=== PATIENT | male | born 1955 | race Caucasian/White ===

== ENCOUNTER 2018-08-08 06:04 | Day surgery (SDC) | payer MEDICARE, OTHER, SELFPAY ==
[2018-08-05 12:24] VITALS: BMI 30.6
[2018-08-08 06:56] VITALS: BP 153/78; PULSE 55; RESP 16; TEMP 36.2; O2SAT 96; BMI 30.3
[2018-08-08] MEDS: LACTATED RINGERS 1,000 ML 42 ML IV (07:00)
--- NOTE | 2018-08-08 07:33 | PM.PREOP ---
Pre-operative Note Interval Note History & Physical reviewed/Exam performed by Physician: Yes Changes to H&P: No
--- NOTE | 2018-08-08 07:36 | P.OP_ITS ---
Operative Date/Time/Diagnoses Date of procedure: 08/08/18 Time of procedure: 07:34 Pre-op diagnosis: Left great toe arthritis/bone spur Post-op diagnosis: same Procedure & Clinicians Procedure: Left first metatarsophalangeal joint cheilectomy Same procedure as scheduled: Yes Indications: Painful prominence on the top of the great toe joint, difficult to wear shoes. Surgeon: Rubi Ronquillo Click Yes if Unassisted: Yes Anesthesia Type: General Operative Notes Closure Type: primary Specimen(s): none sent Estimated Blood Loss (mL): 10 Blood products transfused: none Tourniquet time (min): 22 Procedure in detail: The patient was brought to the operating room and placed on the operating table in the supine position. Tourniquet was placed about the left ankle. Patient is well- padded and appropriately supported. After induction of general anesthesia the left foot and ankle were prepped and draped in the usual aseptic manner. The tourniquet was inflated. Incision was made over the 1st metatarsal phalangeal joint. The incision was deepened through subcutaneous tissues being careful to identify and retract all vital neurovascular structures. All bleeders were cauterized and ligated as necessary. The capsule was entered dorsally at the joint and this exposed the spurring of the dorsal metatarsal head, proximal phalangeal base, and small ossicles/joint mice on the dorsal joint. Over the largest spur dorsally, there was a 1 cm x 1 cm by 0.6 cm fibroma which was within the capsule of the joint. It was easily resected. Of note, the metatarsal head and phalangeal base showed wearing of cartilage surface. The metatarsal head had formed to being more ovoi d than circular consistent with repeated trauma. The saw and rongeur were used to resect the dorsal joint spurs and remove the ossicles. A rasp was used to reduce the sharp edges of the bone. The area was irrigated with copious amounts normal sterile saline. The toe showed increased motion without crepitus on dorsiflexion and plantarflexion. Deep and subcutaneous closure was closed performed with Vicryl. The tourniquet was deflated and a prompt hyperemic response was seen in the foot. Nylon suture used to close the skin. The foot was dressed with a lightly compressive sterile dressing and splint in alignment. Patient was then placed in a postoperative boot and transferred to PACU with vital signs stable. Complications: none Condition: stable Disposition: PACU Plan for aftercare: Following a period of postoperative monitoring, the patient be discharged home on written and oral postoperative instructions including keeping the dressing dry and intact, avoiding significant ambulation on the foot, icing and elevating the foot when seated home. DVT prevention techniques have been reviewed. For the 1st postoperative visit the dressing will be changed and close to the 3rd postoperative week we will likely remove the sutures.
[2018-08-08] MEDS: CEFAZOLIN 2 GM/100 ML FROZ.PIGGY IV (07:46)
--- NOTE | 2018-08-08 08:09 | SUR.OPER ---
Supine on padded OR bed, head on pillow, arms secured on padded arm boards at <90 degrees abduction, legs uncrossed, safety belt at thigh, tape over blanket over lower right leg. Bump laterally under operative leg.
[2018-08-08 08:56] VITALS: BP 122/85; PULSE 58; RESP 13; TEMP 36.3; O2SAT 96
[2018-08-08 09:00] VITALS: BP 119/78; PULSE 53; RESP 15; O2SAT 97
[2018-08-08 09:05] VITALS: BP 139/87; PULSE 61; RESP 16; TEMP 36.2; O2SAT 98
[2018-08-08 09:14] VITALS: BP 139/86; PULSE 56; RESP 15; TEMP 36.6; O2SAT 95
== END 2018-08-08 09:32 | disposition home or self-care (01) ==
PROVIDERS: Visit Provider Podiatrist
PROC: (CPT 28289; principal; 2018-08-08 07:45)
DX: M77.9 Enthesopathy, unspecified (principal); M12.9 Arthropathy, unspecified; E66.9 Obesity, unspecified; I25.10 Atherosclerotic heart disease of native coronary artery without angina pectoris; Z68.31 Body mass index [BMI] 31.0-31.9, adult
CPT/HCPCS: 28289; J0690; J1100; J2250; J2405; J2704; J3010

== ENCOUNTER → 2019-07-10 14:28 | Outpatient (CLI) | payer MEDICARE, OTHER, SELFPAY ==
--- NOTE | 2019-07-10 | DI.ECHO.S_ITS ---
[facility] +---------+ : : [address] : : : : [place], : : : : [place] [address] : : : : Phone: [phone] + + [facility] Echocardiogram Report + + :Name: DOROTHY HEREDIA Study Date: 07/10/2019 Height: 70 in : :[facility] Weight: 232 lb : : Gender: Male BSA: 2.2 m2 : :: 1955 Age: 64 yrs BP: 122/78 mmHg: :Reason For Study: CAD : :Ordering Physician: Danyel : :Von Aleman Performed By: Sapphire Page : + + Interpretation Summary The left ventricle is normal in size. Trabeculae near apex are visualized. No thrombus is observed. Left ventricular systolic function is normal. The ejection fraction is estimated to be 55-60%. Hypokinesis cannot be ruled out along the distal anterior and inferior septal segments. Diastolic parameters suggest a relaxation abnormality of the left ventricle, consistent with probable normal filling pressures. The right ventricle is normal in size and function. The right ventricular systolic pressure is estimated to be at least 25 mmHg based on an estimated right atrial pressure of 8 mm Hg. The left atrium is severely dilated. The right atrium is mild to moderately dilated. There is mild aortic regurgitation. There is no other significant valvular heart disease. The aortic root is mildly dilated. The ascending aorta is mild-moderately enlarged. Procedure: A two-dimensional transthoracic echocardiogram with color flow and Doppler was performed. The study quality was technically adequate. There is no prior echocardiogram noted for this patient. The patient was in sinus bradycardia with heart rates between 50-60 bpm during the exam. Left Ventricle: The left ventricle is normal in size. Left ventricular wall thickness is normal. Trabeculae near apex are visualized. No thrombus is observed. Left ventricular systolic function is normal. The ejection fraction is estimated to be 55-60%. Hypokinesis cannot be ruled out along the distal anterior and inferior septal segments. Diastolic parameters suggest a relaxation abnormality of the left ventricle, consistent with probable normal filling pressures. Right Ventricle: The right ventricle is normal in size and function. Atria: The left atrium is severely dilated. The right atrium is mild to moderately dilated. Doppler interrogation and injection of saline echo contrast shows no evidence for an interatrial shunt. Mitral Valve: The mitral valve is normal in structure and function. There is trace mitral regurgitation. Aortic Valve: The aortic valve is trileaflet. The aortic valve opens well. There is mild aortic regurgitation. Tricuspid Valve: The tricuspid valve is normal in structure and function. There is a trace or physiologic amount of tricuspid regurgitation. The right ventricular systolic pressure is estimated to be at least 25 mmHg based on an estimated right atrial pressure of 8 mm Hg. Pulmonic Valve: The pulmonic valve leaflets are thin and pliable; valve motion is normal. There is no pulmonic valvular regurgitation. There is no other significant valvular heart disease. Great Vessels: The aortic root is mildly dilated. The ascending aorta is mild-moderately enlarged. The pulmonary artery is normal size. The IVC is dilated (diameter is greater than 2.1 cm) yet it collapses greater than 50% with a sniff. This suggests a right atrial pressure of 8 mm Hg. Pericardium/ Pleura There is no pericardial effusion. There is no pleural effusion. MMode/2D Measurements & Calculations LVIDd: 5.4 cm AoV Openin.4 cm LVIDs: 4.2 cm LVOT diam: 2.3 cm IVSd: 0.96 cm Ao root diam: 4.3 cm LVPWd: 0.94 cm asc Aorta Diam: 4.2 cm LV luis. diameter/BSA (cm/m^2): 2.4 LV sys. diameter/BSA (cm/m^2): 1.9 FS: 21.0 % EPSS: 0.50 cm LA A2 area: 38.2 cm2 RA long axis: 5.6 cm LA A4 area: 34.1 cm2 RA area: 23.3 cm2 LA length (vol): 6.7 cm RA vol: 82.5 ml LA vol: 166.1 ml RA : 37.1 ml/m2 LA vol index: 74.7 ml/m2 RVD1 (basal): 4.5 cm IVC diam: 2.8 cm RVD2 (mid): 4.6 cm Doppler Measurements & Calculations Ao V2 max: 157.9 cm/sec LVOT Max Rsihabh: 77.9 cm/sec Ao V2 mean: 110.2 cm/sec LV V1 max P.4 mmHg Ao V2 VTI: 33.2 cm LV V1 VTI: 18.0 cm Ao max P.0 mmHg Ao mean P.3 mmHg MARY(I,D): 2.2 cm2 AI P1/2t: 587.6 msec MARY(V,D): 2.0 cm2 AI dec slope: 173.5 cm/sec2 MARY indexed to BSA (cm^2/m^2): 1.00 sev ratio: 0.54 MV E max rishabh: 59.3 cm/sec MV dec time: 0.26 sec MV A max rishabh: 68.0 cm/sec MV P1/2t: 79.7 msec MV E/A: 0.87 MVA(P1/2t): 2.8 cm2 Med Peak E' Rishabh: 6.5 cm/sec E/E' med: 9.1 Lat Peak E' Rishabh: 6.7 cm/sec E/E' lat: 8.8 E/e' average: 8.9 TR max rishabh: 203.5 cm/sec PA V2 max: 93.0 cm/sec TR max P.6 mmHg PA V2 mean: 67.3 cm/sec PA mean P.0 mmHg PA Accel Time: 0.14 sec SV(LVOT): 73.5 ml Reading Physician:09:41 PM
[2019-07-10 16:21] LABS: Hematocrit 38.2 % (41-53); Hemoglobin 12.7 g/dL (13.5-17.5); Mean Corpuscular HGB Conc 33.4 % (30-36); Mean Corpuscular Hemoglobin 29.7 PG (26-34); Platelet Count 94 X10^3/uL (150-400); Red Blood Cell Count 4.29 X10^6/uL (4.5-5.9); Red Cell Distribution Width 14.1 % (11.6-14.8); White Blood Cell Count 13.3 X10^3/uL (4.5-11.0)
[2019-07-10 16:22] LABS: Add Manual Diff / Slide Review YES
[2019-07-10 16:29] LABS: Alanine Aminotransferase 23 IU/L (<50); Albumin 4.7 g/dL (3.5-5.0); Albumin Globulin Ratio 1.8 (1.0-2.8); Alkaline Phosphatase 64 U/L (38-126); Aspartate Aminotransferase 22 IU/L (17-59); Bilirubin Total 0.7 mg/dL (0.2-1.3); Blood Urea Nitrogen 16 mg/dL (9-20); Calcium 9.8 mg/dL (8.4-10.2); Carbon Dioxide 27 mmol/L (22-32); Chloride 105 mmol/L (98-107); Cholesterol 120 mg/dL (140-199); Estimated Glomerular Filt Rate > 60.0 mL/min (>60); Globulin 2.6 g/dL (1.7-4.1); Glucose 95 mg/dL (80-110); HDL Cholesterol 53 mg/dL (40-60); HEMOLYSIS < 15 (0-50); LDL Cholesterol Calculated 43 mg/dL (<100); Potassium 4.1 mmol/L (3.4-5.1); Sodium 141 mmol/L (137-145); Total Protein 7.3 g/dL (6.3-8.2); Triglycerides 118 mg/dL (35-150)
[2019-07-10 21:13] LABS: Neutrophils Absolute Manual 3059 /uL (3000-5900); Platelet Estimate Decreased on smear; RBC Morphology Normal Morphology; Total Cells Counted 100
== END ==
PROVIDERS: Referring Provider Internal Medicine Cardiovascular Disease; Visit Provider Internal Medicine Cardiovascular Disease
DX: I35.1 Nonrheumatic aortic (valve) insufficiency (principal); I77.810 Thoracic aortic ectasia; I25.10 Atherosclerotic heart disease of native coronary artery without angina pectoris
CPT/HCPCS: 36415; 80053; 80061; 85025; 93306

== ENCOUNTER → 2019-07-17 11:14 | Outpatient (CLI) | payer MEDICARE, OTHER, SELFPAY ==
[2019-07-17 11:59] LABS: Hematocrit 38.1 % (41-53); Hemoglobin 13.1 g/dL (13.5-17.5); Mean Corpuscular HGB Conc 34.4 % (30-36); Mean Corpuscular Hemoglobin 30.2 PG (26-34); Mean Corpuscular Volume 87.8 fL (80-100); Platelet Count 104 X10^3/uL (150-400); Red Blood Cell Count 4.34 X10^6/uL (4.5-5.9); Red Cell Distribution Width 14.3 % (11.6-14.8); White Blood Cell Count 14.5 X10^3/uL (4.5-11.0)
[2019-07-17 12:13] LABS: Reticulocyte Count, Percent 2.3 % (0.87-2.60)
[2019-07-17 12:17] LABS: Neutrophils Absolute Manual 3770 /uL (3000-5900); RBC Morphology Normal Morphology; Total Cells Counted 100
[2019-07-17 13:34] LABS: HEMOLYSIS < 15 (0-50); Iron 84 ug/dL (49-181)
[2019-07-17 13:43] LABS: Percent Iron Saturation 24 % (20-50); Total Iron Binding Capacity 354 ug/dL (261-462); Transferrin 286 mg/dL (206-381)
[2019-07-17 13:52] LABS: Prostate Specific Antigen Scrn 1.48 ng/mL (0.1-4.0)
[2019-07-17 14:26] LABS: Folate 10.4 ng/mL (2.76-20.0); Vitamin B12 292 pg/mL (239-931)
--- NOTE | 2019-09-21 11:23 | ONC.MSW ---
Description: New Referral Navigation T/C Activity: Called pt to confirm that we've received his referral, introduce myself as the navigator, and briefly described the ongoing availability of assistance, support and resource referrals as needed. No immediate needs identified. Confirmed his initial consult visit time w/Dr. Hernandez for Saturday, 09/24 at 10:00am.
== END ==
PROVIDERS: PCP Internal Medicine; Referring Provider Internal Medicine; Visit Provider Internal Medicine
DX: Z12.5 Encounter for screening for malignant neoplasm of prostate (principal); D64.9 Anemia, unspecified; D69.6 Thrombocytopenia, unspecified; D72.829 Elevated white blood cell count, unspecified
CPT/HCPCS: 36415; 82607; 82746; 83540; 83550; 85025; 85045; 88184; 88185; 88189; G0103

== ENCOUNTER 2019-08-12 15:15 | Outpatient (RCR) | payer MEDICARE, OTHER, SELFPAY ==
--- NOTE | 2019-07-31 14:30 | PT.OPPOC ---
Physical, Occupational & Speech Therapy At [facility] Current Diagnoses Pain in left shoulder (07/31/19) Stiffness of left shoulder, not elsewhere classified (07/31/19) Other injury of muscle(s) and tendon(s) of the rotator cuff of left shoulder, subsequent encounter (07/31/19) Visit Care Team Role Provider Type Julio C Clark MD Attending Provider Physician Primary Care Provider Referring Provider Specialty: Internal Medicine Address: [address] [place] [address], [address], [facility] Email: [email or web address] Plan Of Care PT-OP-T Assessment and Plan Start: 07/31/19 16:22 Freq: Status: Active Protocol: Document 07/31/19 13:45 DCW (Rec: 08/03/19 11:45 DCW [id number]) Physical Therapy Assessment Rehab Potential Rehabilitation Potential Good Evaluation Complexity Number of Personal Factors/Comorbidities 1-2 Number of Body Systems Impaired 1-2 Clinical Presentation at Evaluation Evolving Impairments Impairments Functional Mobility,Posture, ROM,Soft Tissue Mobility, Strength Goals Three Impairment Decreased L shoulder strength [employer] Technical Officer Goal (LTG) Pt to demonstrate a 4/5 left shoulder strength in flexion and abduction in order to lift arm overhead to reach his garage radio. LTG Duration 09/30/19 Two Impairment L shoulder ROM limited (70? abd, 140? flex) [employer] Technical Officer Goal (LTG) L shoulder ROM to increase to 120? abduction to improve ease of putting on deodorant in the morning. LTG Duration 09/30/19 One Impairment Pt does not have an appropriate home exercise program Short Term Goal (STG) Pt to be independent and complaint with an appropriate HEP STG Duration 08/31/19 Assessment Summary Assessment Pt presents with signs and symptoms consistent with a possible supraspinatus tear and subacrominal impingement, with positive special tests including Gasca-Haroldo and Empty Can, as well as significantly limited active Abduction in his left shoulder . Pt additionally displays poor scapulothoracic rhythm, which is also limiting his shoulder mobility. Pt admits that due to minimal or no health insurance over the majority of his adult life, he is trying to get a lot taken care of now that he is on Medicare, which, pending results of other tests, may interfere with a regular course of therapy. If pt is consistent with therapy, and does not make expected progress over the next month, pt may benefit from an MRI to rule in or rule out a rotator cuff tear. Pt should benefit from skilled therapy focusing on increasing strength and ROM , as well as manual therapy to decrease Rhomboid muscle tone and improve joint mobility. Physical Therapy Plan Frequency and Duration Frequency of Treatment 2x/Week Duration of Treatment 12 weeks Plan of Care Start Date 07/31/19 Plan of Care End Date 10/23/19 Therapeutic Interventions Therapeutic Interventions Home Exercise Program,Joint Mobilizations,Manual Therapy, Patient/Caregiver Education, Self-Care/Home Management,Soft Tissue Mobilization, Therapeutic Activities, Therapeutic Exercises Modalities Cold Pack/Ice Massage,Hot Packs Next Visit Focus/Plan Next Note Type Treatment Note Next Visit Plan Shoulder ROM/Strengthening, STM to rhomboids, joint mobs to thoracolumbar and GH joints Plan of Care Dates Plan of Care Start Date 07/31/19 Plan of Care End Date 10/23/19 Electronically Signed by: Sergio Zimmerman, PT 08/03/19 1724 Please Sign and Return: I have reviewed this Plan of Care and certify that the skilled therapy services above are required to meet the patient?s needs. Physician Signature Date Printed Name and Credentials Clinical Instructor Signature Printed Name and Credentials
--- NOTE | 2019-07-31 14:30 | PT.OIE ---
Current Diagnoses Pain in left shoulder (07/31/19) Stiffness of left shoulder, not elsewhere classified (07/31/19) Other injury of muscle(s) and tendon(s) of the rotator cuff of left shoulder, subsequent encounter (07/31/19) Past Medical History (Last Updated 07/17/19 @ 09:09 by Julio C Clark MD) CAD (coronary artery disease) (Chronic) Former smoker (Acute) Hyperlipidemia (Chronic) Sinus bradycardia (Acute) Past Surgical History (Last Updated 07/17/19 @ 09:10 by Julio C Clark MD) Hx of heart artery stent (Acute ~2013) S/P foot surgery, left (Acute ~07/2018) Visit Care Team Role Provider Type Julio C Clark MD Attending Provider Physician Primary Care Provider Referring Provider Specialty: Internal Medicine Address: [address] [place] [address], [address], [facility] Email: [email or web address] Physical Therapy Initial Evaluation PT-OP-A Visit Information Start: 07/31/19 16:22 Freq: Status: Active Protocol: Document 07/31/19 13:45 DCW (Rec: 07/31/19 16:58 [facility] [id number]) Out-Patient Physical Therapy Visit Information Visit Information Visit Type Initial Evaluation Visit Start Time 13:45 Visit Stop Time 14:30 Total Visit Minutes 45 Visit Number 1 Number of EDUCATION DEPARTMENT CHAIR Visits 0 Evaluation Information Evaluation Date 07/31/19 PT-OP-B Current Condition Start: 07/31/19 16:22 Freq: Status: Active Protocol: Document 07/31/19 13:45 DCW (Rec: 07/31/19 16:58 [facility] [id number]) Current Condition History of Current Condition Onset Date one year Current Complaints shoulder pain and limited ROM History of Current Condition Pt is a 64 year old male complaining of a one year history of worsening left shoulder pain and decreasing ROM. Pt notes that about 40 years ago, he badly injured his shoulder skiing, but I didn't do anything about it, because I was young and tough. He thinks this may have started his problems, but it hasn't really bothered him until one year ago. Pt notices his limitations mostly with any overhead motions, lifting, or attempting to put on deodorant. Pt notes a general dull ache fairly consistently, but it can increase when trying to lift his arm into abduction. 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 Notes that he recently had a blood draw, and notes he was recently contacted that he needs to go back to follow-up, because some of my numbers were off. PT-OP-C Subjective Start: 07/31/19 16:22 Freq: Status: Active Protocol: Document 07/31/19 13:45 DCW (Rec: 07/31/19 16:58 DCW [id number]) OP-PT Subjective Patient Comments Patient Comments It's been getting worse over the past year. Patient Reported Progress Worse Patient Questionnaires Quick Dash- Upper Extremity Quick Dash UE Score 15.91 Quick Dash UE Impairment 1 to 19% Impaired (Score 1-19) OP-PT Pain Assessment Pain Assessment Grid Paper Pain Assessment Grid Completed Yes Location Bilateral Shoulder Intensity 4 Scale Used Numeric (1 - 10) Description Aching PT-OP-E Functional Tests Start: 07/31/19 16:22 Freq: Status: Active Protocol: Document 07/31/19 13:45 DCW (Rec: 07/31/19 16:58 DCW [id number]) Functional Tests Apley's Scratch Test Action 1- Left Lateral opposite shoulder Action 1- Right Lateral opposite shoulder Action 2- Left T2 Action 2- Right T5 Action 3- Left T10 Action 3- Right T9 PT-OP-F Manual Assessment Start: 07/31/19 16:22 Freq: Status: Active Protocol: Document 07/31/19 13:45 DCW (Rec: 08/03/19 09:46 DCW [id number]) Manual Assessments Soft Tissue Assessment Soft Tissue Mobility Assessment Moderate-severe tone in L rhomboids Joint Mobility Assessment Joint Mobility Assessment Minimal mobility of scapula, poor scapulothoracic rhythm PT-OP-J Posture/Palpation/Skin Start: 07/31/19 16:22 Freq: Status: Active Protocol: Document 07/31/19 13:45 DCW (Rec: 08/03/19 09:46 DCW [id number]) Posture Evaluation Position Sitting Shoulder Posture (R) Rounded,(R) Forward PT-OP-K Range of Motion Start: 07/31/19 16:22 Freq: Status: Active Protocol: Document 07/31/19 13:45 DCW (Rec: 08/03/19 09:46 DCW [id number]) Shoulder Goniometric Range of Motion Shoulder Right Active Testing Position Sitting Flexion 170 Abduction 150 Left Active Shoulder ROM WFL No Testing Position Sitting Flexion 140 Abduction 70 Shoulder ROM Limitations Shoulder ROM Limitations Soft Tissue Tightness,Muscle Weakness,Muscle Tone,Pain PT-OP-L Special Tests Start: 07/31/19 16:22 Freq: Status: Active Protocol: Document 07/31/19 13:45 DCW (Rec: 08/03/19 09:46 DCW [id number]) Special Tests Shoulder Special Tests Passive ER Rotator Cuff Test Results Positive Left Gasca Haroldo Impingement Test Results Positive Bilaterally Empty Can Test Results Positive Left Belly Press Test Results Positive Left AC Joint Compression Test Results Negative PT-OP-M Strength Start: 07/31/19 16:22 Freq: Status: Active Protocol: Document 07/31/19 13:45 DCW (Rec: 08/03/19 09:46 DCW [id number]) Shoulder Strength Shoulder Manual Muscle Testing Left Flexion 3- Fair- Abduction (C5) 2+ Poor+ External Rotation 5 Normal Internal Rotation 5 Normal Comments Pt flexion and abduction strong in available ROM, however unable to move throughout full ROM PT-OP-Q Treatments Start: 07/31/19 16:22 Freq: Status: Active Protocol: Document 07/31/19 13:45 DCW (Rec: 08/03/19 11:45 DCW [id number]) Manual Therapy Treatment Joint Mobilizations 2 Joint L Glenohumeral Direction Inferior Grade III Body Position Hooklying 1 Joint L scapulothoracic Direction Lateral Grade III Body Position Hooklying PT-OP-T Assessment and Plan Start: 07/31/19 16:22 Freq: Status: Active Protocol: Document 07/31/19 13:45 DCW (Rec: 08/03/19 11:45 DCW [id number]) Physical Therapy Assessment Rehab Potential Rehabilitation Potential Good Evaluation Complexity Number of Personal Factors/Comorbidities 1-2 Number of Body Systems Impaired 1-2 Clinical Presentation at Evaluation Evolving Impairments Impairments Functional Mobility,Posture, ROM,Soft Tissue Mobility, Strength Goals Three Impairment Decreased L shoulder strength [employer] Other Ranks Goal (LTG) Pt to demonstrate a 4/5 left shoulder strength in flexion and abduction in order to lift arm overhead to reach his garage radio. LTG Duration 09/30/19 Two Impairment L shoulder ROM limited (70? abd, 140? flex) [facility] Goal (LTG) L shoulder ROM to increase to 120? abduction to improve ease of putting on deodorant in the morning. LTG Duration 09/30/19 One Impairment Pt does not have an appropriate home exercise program Short Term Goal (STG) Pt to be independent and complaint with an appropriate HEP STG Duration 08/31/19 Assessment Summary Assessment Pt presents with signs and symptoms consistent with a possible supraspinatus tear and subacrominal impingement, with positive special tests including Gasca-Haroldo and Empty Can, as well as significantly limited active Abduction in his left shoulder . Pt additionally displays poor scapulothoracic rhythm, which is also limiting his shoulder mobility. Pt admits that due to minimal or no health insurance over the majority of his adult life, he is trying to get a lot taken care of now that he is on Medicare, which, pending results of other tests, may interfere with a regular course of therapy. If pt is consistent with therapy, and does not make expected progress over the next month, pt may benefit from an MRI to rule in or rule out a rotator cuff tear. Pt should benefit from skilled therapy focusing on increasing strength and ROM , as well as manual therapy to decrease Rhomboid muscle tone and improve joint mobility. Physical Therapy Plan Frequency and Duration Frequency of Treatment 2x/Week Duration of Treatment 12 weeks Plan of Care Start Date 07/31/19 Plan of Care End Date 10/23/19 Therapeutic Interventions Therapeutic Interventions Home Exercise Program,Joint Mobilizations,Manual Therapy, Patient/Caregiver Education, Self-Care/Home Management,Soft Tissue Mobilization, Therapeutic Activities, Therapeutic Exercises Modalities Cold Pack/Ice Massage,Hot Packs Next Visit Focus/Plan Next Note Type Treatment Note Next Visit Plan Shoulder ROM/Strengthening, STM to rhomboids, joint mobs to thoracolumbar and GH joints
--- NOTE | 2019-08-03 16:46 | PT.OTN ---
Current Diagnoses Pain in left shoulder (08/03/19) Stiffness of left shoulder, not elsewhere classified (08/03/19) Other injury of muscle(s) and tendon(s) of the rotator cuff of left shoulder, subsequent encounter (08/03/19) Physical Therapy Treatment Note PT-OP-A Visit Information Start: 07/31/19 16:22 Freq: Status: Active Protocol: Document 08/03/19 16:00 DCW (Rec: 08/03/19 16:46 DCW [id number]) Out-Patient Physical Therapy Visit Information Visit Information Visit Type Treatment Note Visit Start Time 16:00 Visit Stop Time 16:45 Total Visit Minutes 45 Visit Number 2 Number of EDGE BRUSHER Visits 0 Evaluation Information Evaluation Date 07/31/19 PT-OP-B Current Condition Start: 07/31/19 16:22 Freq: Status: Active Protocol: Document 07/31/19 13:45 DCW (Rec: 07/31/19 16:58 DCW [id number]) Current Condition History of Current Condition Onset Date one year Current Complaints shoulder pain and limited ROM History of Current Condition Pt is a 64 year old male complaining of a one year history of worsening left shoulder pain and decreasing ROM. Pt notes that about 40 years ago, he badly injured his shoulder skiing, but I didn't do anything about it, because I was young and tough. He thinks this may have started his problems, but it hasn't really bothered him until one year ago. Pt notices his limitations mostly with any overhead motions, lifting, or attempting to put on deodorant. Pt notes a general dull ache fairly consistently, but it can increase when trying to lift his arm into abduction. 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 Notes that he recently had a blood draw, and notes he was recently contacted that he needs to go back to follow-up, because some of my numbers were off. PT-OP-C Subjective Start: 07/31/19 16:22 Freq: Status: Active Protocol: Document 08/03/19 16:00 DCW (Rec: 08/03/19 16:46 DCW [id number]) OP-PT Subjective Patient Comments Patient Comments It's amazing, if you don't use something for long enough, you start to lose it. I think I'm in that zone. PT-OP-E Functional Tests Start: 07/31/19 16:22 Freq: Status: Active Protocol: Document 07/31/19 13:45 DCW (Rec: 07/31/19 16:58 DCW [id number]) Functional Tests Apley's Scratch Test Action 1- Left Lateral opposite shoulder Action 1- Right Lateral opposite shoulder Action 2- Left T2 Action 2- Right T5 Action 3- Left T10 Action 3- Right T9 PT-OP-F Manual Assessment Start: 07/31/19 16:22 Freq: Status: Active Protocol: Document 07/31/19 13:45 DCW (Rec: 08/03/19 09:46 DCW [id number]) Manual Assessments Soft Tissue Assessment Soft Tissue Mobility Assessment Moderate-severe tone in L rhomboids Joint Mobility Assessment Joint Mobility Assessment Minimal mobility of scapula, poor scapulothoracic rhythm PT-OP-J Posture/Palpation/Skin Start: 07/31/19 16:22 Freq: Status: Active Protocol: Document 07/31/19 13:45 DCW (Rec: 08/03/19 09:46 DCW [id number]) Posture Evaluation Position Sitting Shoulder Posture (R) Rounded,(R) Forward PT-OP-K Range of Motion Start: 07/31/19 16:22 Freq: Status: Active Protocol: Document 07/31/19 13:45 DCW (Rec: 08/03/19 09:46 DCW [id number]) Shoulder Goniometric Range of Motion Shoulder Right Active Testing Position Sitting Flexion 170 Abduction 150 Left Active Shoulder ROM WFL No Testing Position Sitting Flexion 140 Abduction 70 Shoulder ROM Limitations Shoulder ROM Limitations Soft Tissue Tightness,Muscle Weakness,Muscle Tone,Pain PT-OP-L Special Tests Start: 07/31/19 16:22 Freq: Status: Active Protocol: Document 07/31/19 13:45 DCW (Rec: 08/03/19 09:46 DCW [id number]) Special Tests Shoulder Special Tests Passive ER Rotator Cuff Test Results Positive Left Gasca Haroldo Impingement Test Results Positive Bilaterally Empty Can Test Results Positive Left Belly Press Test Results Positive Left AC Joint Compression Test Results Negative PT-OP-M Strength Start: 07/31/19 16:22 Freq: Status: Active Protocol: Document 07/31/19 13:45 DCW (Rec: 08/03/19 09:46 DCW [id number]) Shoulder Strength Shoulder Manual Muscle Testing Left Flexion 3- Fair- Abduction (C5) 2+ Poor+ External Rotation 5 Normal Internal Rotation 5 Normal Comments Pt flexion and abduction strong in available ROM, however unable to move throughout full ROM PT-OP-Q Treatments Start: 07/31/19 16:22 Freq: Status: Active Protocol: Document 08/03/19 16:00 DCW (Rec: 08/03/19 16:46 DCW [id number]) Therapeutic Exercises Sitting Exercises 1 Sitting Exercise Name Pulleys: Flexion/Abduction Standing Exercises 3 Standing Exercise Name Rows Side bilateral Resistance Lv 2 Equipment Used T-band 2 Standing Exercise Name Shoulder Adduction Side bilateral Resistance Lv 2 Equipment Used T-band 1 Standing Exercise Name Shoulder Extension Side bilateral Resistance Lv 2 Equipment Used T-band Manual Therapy Treatment Soft Tissue Mobilization 1 Body Location B Rhomboids Mobilization Type Strumming,Sustained Pressure Joint Mobilizations 2 Joint L Glenohumeral Direction Inferior Grade III Body Position Hooklying 1 Joint L scapulothoracic Direction Lateral Grade III Body Position Hooklying PT-OP-T Assessment and Plan Start: 07/31/19 16:22 Freq: Status: Active Protocol: Document 08/03/19 16:00 DCW (Rec: 08/03/19 16:46 DCW [id number]) Physical Therapy Assessment Impairments Impairments Functional Mobility,Posture, ROM,Soft Tissue Mobility, Strength Goals Three Impairment Decreased L shoulder strength Custodial Goal (LTG) Pt to demonstrate a 4/5 left shoulder strength in flexion and abduction in order to lift arm overhead to reach his garage radio. LTG Duration 09/30/19 Two Impairment L shoulder ROM limited (70? abd, 140? flex) Custodial Goal (LTG) L shoulder ROM to increase to 120? abduction to improve ease of putting on deodorant in the morning. LTG Duration 09/30/19 One Impairment Pt does not have an appropriate home exercise program Short Term Goal (STG) Pt to be independent and complaint with an appropriate HEP STG Duration 08/31/19 Assessment Summary Assessment Pt left shoulder much looser today, therapist able to get fingers along medial boarder with minimal difficulty, despite last week needing STM and joint maneuvering to get scapula loose enough. Pt reports feeling much better both after his initial evaluation and after treatment today. Physical Therapy Plan Frequency and Duration Frequency of Treatment 2x/Week Duration of Treatment 12 weeks Plan of Care Start Date 07/31/19 Plan of Care End Date 10/23/19 Therapeutic Interventions Therapeutic Interventions Home Exercise Program,Joint Mobilizations,Manual Therapy, Patient/Caregiver Education, Self-Care/Home Management,Soft Tissue Mobilization, Therapeutic Activities, Therapeutic Exercises Modalities Cold Pack/Ice Massage,Hot Packs Next Visit Focus/Plan Next Note Type Treatment Note Next Visit Plan Shoulder ROM/Strengthening, STM to rhomboids, joint mobs to thoracolumbar and GH joints
--- NOTE | 2019-08-06 16:55 | PT.OTN ---
Current Diagnoses Pain in left shoulder (08/06/19) Stiffness of left shoulder, not elsewhere classified (08/06/19) Other injury of muscle(s) and tendon(s) of the rotator cuff of left shoulder, subsequent encounter (08/06/19) Physical Therapy Treatment Note PT-OP-A Visit Information Start: 07/31/19 16:22 Freq: Status: Active Protocol: Document 08/06/19 16:00 DCW (Rec: 08/06/19 16:55 DCW [id number]) Out-Patient Physical Therapy Visit Information Visit Information Visit Type Treatment Note Visit Start Time 16:00 Visit Stop Time 16:45 Total Visit Minutes 45 Visit Number 3 Number of NUCLEAR PLANT EQUIPMENT OPERATOR Visits 0 Evaluation Information Evaluation Date 07/31/19 PT-OP-B Current Condition Start: 07/31/19 16:22 Freq: Status: Active Protocol: Document 07/31/19 13:45 DCW (Rec: 07/31/19 16:58 DCW [id number]) Current Condition History of Current Condition Onset Date one year Current Complaints shoulder pain and limited ROM History of Current Condition Pt is a 64 year old male complaining of a one year history of worsening left shoulder pain and decreasing ROM. Pt notes that about 40 years ago, he badly injured his shoulder skiing, but I didn't do anything about it, because I was young and tough. He thinks this may have started his problems, but it hasn't really bothered him until one year ago. Pt notices his limitations mostly with any overhead motions, lifting, or attempting to put on deodorant. Pt notes a general dull ache fairly consistently, but it can increase when trying to lift his arm into abduction. 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 Notes that he recently had a blood draw, and notes he was recently contacted that he needs to go back to follow-up, because some of my numbers were off. PT-OP-C Subjective Start: 07/31/19 16:22 Freq: Status: Active Protocol: Document 08/06/19 16:00 DCW (Rec: 08/06/19 16:55 DCW [id number]) OP-PT Subjective Patient Comments Patient Comments It's not fixed yet. PT-OP-E Functional Tests Start: 07/31/19 16:22 Freq: Status: Active Protocol: Document 07/31/19 13:45 DCW (Rec: 07/31/19 16:58 DCW [id number]) Functional Tests Apley's Scratch Test Action 1- Left Lateral opposite shoulder Action 1- Right Lateral opposite shoulder Action 2- Left T2 Action 2- Right T5 Action 3- Left T10 Action 3- Right T9 PT-OP-F Manual Assessment Start: 07/31/19 16:22 Freq: Status: Active Protocol: Document 07/31/19 13:45 DCW (Rec: 08/03/19 09:46 DCW [id number]) Manual Assessments Soft Tissue Assessment Soft Tissue Mobility Assessment Moderate-severe tone in L rhomboids Joint Mobility Assessment Joint Mobility Assessment Minimal mobility of scapula, poor scapulothoracic rhythm PT-OP-J Posture/Palpation/Skin Start: 07/31/19 16:22 Freq: Status: Active Protocol: Document 07/31/19 13:45 DCW (Rec: 08/03/19 09:46 DCW [id number]) Posture Evaluation Position Sitting Shoulder Posture (R) Rounded,(R) Forward PT-OP-K Range of Motion Start: 07/31/19 16:22 Freq: Status: Active Protocol: Document 07/31/19 13:45 DCW (Rec: 08/03/19 09:46 DCW [id number]) Shoulder Goniometric Range of Motion Shoulder Right Active Testing Position Sitting Flexion 170 Abduction 150 Left Active Shoulder ROM WFL No Testing Position Sitting Flexion 140 Abduction 70 Shoulder ROM Limitations Shoulder ROM Limitations Soft Tissue Tightness,Muscle Weakness,Muscle Tone,Pain PT-OP-L Special Tests Start: 07/31/19 16:22 Freq: Status: Active Protocol: Document 07/31/19 13:45 DCW (Rec: 08/03/19 09:46 DCW [id number]) Special Tests Shoulder Special Tests Passive ER Rotator Cuff Test Results Positive Left Gasca Haroldo Impingement Test Results Positive Bilaterally Empty Can Test Results Positive Left Belly Press Test Results Positive Left AC Joint Compression Test Results Negative PT-OP-M Strength Start: 07/31/19 16:22 Freq: Status: Active Protocol: Document 07/31/19 13:45 DCW (Rec: 08/03/19 09:46 DCW [id number]) Shoulder Strength Shoulder Manual Muscle Testing Left Flexion 3- Fair- Abduction (C5) 2+ Poor+ External Rotation 5 Normal Internal Rotation 5 Normal Comments Pt flexion and abduction strong in available ROM, however unable to move throughout full ROM PT-OP-Q Treatments Start: 07/31/19 16:22 Freq: Status: Active Protocol: Document 08/06/19 16:00 DCW (Rec: 08/06/19 16:55 DCW [id number]) Cardio Equipment Upper Body Ergometer (UBE) Duration (Minutes) 5 RPM 60 Seat Position 13 Height 2.5 Therapeutic Exercises Supine Exercises 2 Supine Exercise Name Horizontal Adduction Side bilateral Resistance 3# 1 Supine Exercise Name Serratus Punch Side bilateral Resistance 3# Sitting Exercises 1 Sitting Exercise Name Pulleys: Flexion/Abduction Standing Exercises 3 Standing Exercise Name Rows Side bilateral Resistance Lv 4 Equipment Used T-band 2 Standing Exercise Name Shoulder Adduction Side bilateral Resistance Lv 2 Equipment Used T-band 1 Standing Exercise Name Shoulder Extension Side bilateral Resistance Lv 2 Equipment Used T-band PT-OP-T Assessment and Plan Start: 07/31/19 16:22 Freq: Status: Active Protocol: Document 08/06/19 16:00 DCW (Rec: 08/06/19 16:55 DCW [id number]) Physical Therapy Assessment Assessment Summary Assessment Pt continues to make progress, showing increased tolerance to movement, and was less sore /fatigued with resistance exercises today. Physical Therapy Plan Frequency and Duration Frequency of Treatment 2x/Week Duration of Treatment 12 weeks Plan of Care Start Date 07/31/19 Plan of Care End Date 10/23/19 Therapeutic Interventions Therapeutic Interventions Home Exercise Program,Joint Mobilizations,Manual Therapy, Patient/Caregiver Education, Self-Care/Home Management,Soft Tissue Mobilization, Therapeutic Activities, Therapeutic Exercises Modalities Cold Pack/Ice Massage,Hot Packs Next Visit Focus/Plan Next Note Type Treatment Note Next Visit Plan Shoulder ROM/Strengthening, STM to rhomboids, joint mobs to thoracolumbar and GH joints
--- NOTE | 2019-08-12 16:03 | PT.OTN ---
Current Diagnoses Pain in left shoulder (08/12/19) Stiffness of left shoulder, not elsewhere classified (08/12/19) Other injury of muscle(s) and tendon(s) of the rotator cuff of left shoulder, subsequent encounter (08/12/19) Physical Therapy Treatment Note PT-OP-A Visit Information Start: 07/31/19 16:22 Freq: Status: Active Protocol: Document 08/12/19 15:15 DCW (Rec: 08/12/19 16:03 DCW [id number]) Out-Patient Physical Therapy Visit Information Visit Information Visit Type Treatment Note Visit Start Time 15:15 Visit Stop Time 16:00 Total Visit Minutes 45 Visit Number 4 Number of WIRELESS SALES ASSOCIATE Visits 0 Evaluation Information Evaluation Date 07/31/19 PT-OP-B Current Condition Start: 07/31/19 16:22 Freq: Status: Active Protocol: Document 07/31/19 13:45 DCW (Rec: 07/31/19 16:58 DCW [id number]) Current Condition History of Current Condition Onset Date one year Current Complaints shoulder pain and limited ROM History of Current Condition Pt is a 64 year old male complaining of a one year history of worsening left shoulder pain and decreasing ROM. Pt notes that about 40 years ago, he badly injured his shoulder skiing, but I didn't do anything about it, because I was young and tough. He thinks this may have started his problems, but it hasn't really bothered him until one year ago. Pt notices his limitations mostly with any overhead motions, lifting, or attempting to put on deodorant. Pt notes a general dull ache fairly consistently, but it can increase when trying to lift his arm into abduction. 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 Notes that he recently had a blood draw, and notes he was recently contacted that he needs to go back to follow-up, because some of my numbers were off. PT-OP-C Subjective Start: 07/31/19 16:22 Freq: Status: Active Protocol: Document 08/12/19 15:15 DCW (Rec: 08/12/19 16:03 DCW [id number]) OP-PT Subjective Patient Comments Patient Comments It's getting better. I can still feel it, but it's getting better. PT-OP-E Functional Tests Start: 07/31/19 16:22 Freq: Status: Active Protocol: Document 07/31/19 13:45 DCW (Rec: 07/31/19 16:58 DCW [id number]) Functional Tests Apley's Scratch Test Action 1- Left Lateral opposite shoulder Action 1- Right Lateral opposite shoulder Action 2- Left T2 Action 2- Right T5 Action 3- Left T10 Action 3- Right T9 PT-OP-F Manual Assessment Start: 07/31/19 16:22 Freq: Status: Active Protocol: Document 07/31/19 13:45 DCW (Rec: 08/03/19 09:46 DCW [id number]) Manual Assessments Soft Tissue Assessment Soft Tissue Mobility Assessment Moderate-severe tone in L rhomboids Joint Mobility Assessment Joint Mobility Assessment Minimal mobility of scapula, poor scapulothoracic rhythm PT-OP-J Posture/Palpation/Skin Start: 07/31/19 16:22 Freq: Status: Active Protocol: Document 07/31/19 13:45 DCW (Rec: 08/03/19 09:46 DCW [id number]) Posture Evaluation Position Sitting Shoulder Posture (R) Rounded,(R) Forward PT-OP-K Range of Motion Start: 07/31/19 16:22 Freq: Status: Active Protocol: Document 07/31/19 13:45 DCW (Rec: 08/03/19 09:46 DCW [id number]) Shoulder Goniometric Range of Motion Shoulder Right Active Testing Position Sitting Flexion 170 Abduction 150 Left Active Shoulder ROM WFL No Testing Position Sitting Flexion 140 Abduction 70 Shoulder ROM Limitations Shoulder ROM Limitations Soft Tissue Tightness,Muscle Weakness,Muscle Tone,Pain PT-OP-L Special Tests Start: 07/31/19 16:22 Freq: Status: Active Protocol: Document 07/31/19 13:45 DCW (Rec: 08/03/19 09:46 DCW [id number]) Special Tests Shoulder Special Tests Passive ER Rotator Cuff Test Results Positive Left Gasca Haroldo Impingement Test Results Positive Bilaterally Empty Can Test Results Positive Left Belly Press Test Results Positive Left AC Joint Compression Test Results Negative PT-OP-M Strength Start: 07/31/19 16:22 Freq: Status: Active Protocol: Document 07/31/19 13:45 DCW (Rec: 08/03/19 09:46 DCW [id number]) Shoulder Strength Shoulder Manual Muscle Testing Left Flexion 3- Fair- Abduction (C5) 2+ Poor+ External Rotation 5 Normal Internal Rotation 5 Normal Comments Pt flexion and abduction strong in available ROM, however unable to move throughout full ROM PT-OP-Q Treatments Start: 07/31/19 16:22 Freq: Status: Active Protocol: Document 08/12/19 15:15 DCW (Rec: 08/12/19 16:03 DCW [id number]) Cardio Equipment Upper Body Ergometer (UBE) Duration (Minutes) 5 RPM 60 Seat Position 13 Height 2.5 Therapeutic Exercises Supine Exercises 2 Supine Exercise Name Horizontal Adduction Side bilateral Resistance 3# 1 Supine Exercise Name Serratus Punch Side bilateral Resistance 3# Sidelying Exercises 1 Sidelying Exercise Name Sidelying ER Side left Comments Stopped d/t pain Sitting Exercises 1 Sitting Exercise Name Pulleys: Flexion/Abduction Standing Exercises 5 Standing Exercise Name Shoulder Abduction Side bilateral Resistance 3# 4 Standing Exercise Name Shoulder Flexion Side bilateral Resistance 3# Manual Therapy Treatment Soft Tissue Mobilization 1 Body Location B Rhomboids Mobilization Type Strumming,Sustained Pressure Joint Mobilizations 2 Joint L Glenohumeral Direction Inferior Grade III Body Position Hooklying 1 Joint L scapulothoracic Direction Lateral Grade III Body Position Hooklying PT-OP-T Assessment and Plan Start: 07/31/19 16:22 Freq: Status: Active Protocol: Document 08/12/19 15:15 DCW (Rec: 08/12/19 16:03 DCW [id number]) Physical Therapy Assessment Impairments Impairments Functional Mobility,Posture, ROM,Soft Tissue Mobility, Strength Goals Three Impairment Decreased L shoulder strength Family Independence Case Manager Goal (LTG) Pt to demonstrate a 4/5 left shoulder strength in flexion and abduction in order to lift arm overhead to reach his garage radio. LTG Duration 09/30/19 Two Impairment L shoulder ROM limited (70? abd, 140? flex) Half-Way Goal (LTG) L shoulder ROM to increase to 120? abduction to improve ease of putting on deodorant in the morning. LTG Duration 09/30/19 One Impairment Pt does not have an appropriate home exercise program Short Term Goal (STG) Pt to be independent and complaint with an appropriate HEP STG Duration 08/31/19 Assessment Summary Assessment Pt left shoulder much looser today, therapist able to get fingers along medial boarder with minimal difficulty, despite last week needing STM and joint maneuvering to get scapula loose enough. Pt reports feeling much better both after his initial evaluation and after treatment today. Physical Therapy Plan Frequency and Duration Frequency of Treatment 2x/Week Duration of Treatment 12 weeks Plan of Care Start Date 07/31/19 Plan of Care End Date 10/23/19 Therapeutic Interventions Therapeutic Interventions Home Exercise Program,Joint Mobilizations,Manual Therapy, Patient/Caregiver Education, Self-Care/Home Management,Soft Tissue Mobilization, Therapeutic Activities, Therapeutic Exercises Modalities Cold Pack/Ice Massage,Hot Packs Next Visit Focus/Plan Next Note Type Treatment Note Next Visit Plan Shoulder ROM/Strengthening, STM to rhomboids, joint mobs to thoracolumbar and GH joints
--- NOTE | 2020-01-06 17:13 | PT.OPDS ---
Current Diagnoses Pain in left shoulder (08/12/19) Stiffness of left shoulder, not elsewhere classified (08/12/19) Other injury of muscle(s) and tendon(s) of the rotator cuff of left shoulder, subsequent encounter (08/12/19) Visit Care Team Role Provider Type Julio C Clark MD Attending Provider Physician Primary Care Provider Referring Provider Specialty: Internal Medicine Address: [address] [place] [address], [address], [facility] Email: [email or web address] Visit Number Visit Number 4 Discharge Summary PT-OP-B Current Condition Start: 07/31/19 16:22 Freq: Status: Active Protocol: Document 07/31/19 13:45 DCW (Rec: 07/31/19 16:58 DCW [id number]) Current Condition History of Current Condition Onset Date one year Current Complaints shoulder pain and limited ROM History of Current Condition Pt is a 64 year old male complaining of a one year history of worsening left shoulder pain and decreasing ROM. Pt notes that about 40 years ago, he badly injured his shoulder skiing, but I didn't do anything about it, because I was young and tough. He thinks this may have started his problems, but it hasn't really bothered him until one year ago. Pt notices his limitations mostly with any overhead motions, lifting, or attempting to put on deodorant. Pt notes a general dull ache fairly consistently, but it can increase when trying to lift his arm into abduction. 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 Notes that he recently had a blood draw, and notes he was recently contacted that he needs to go back to follow-up, because some of my numbers were off. PT-OP-C Subjective Start: 07/31/19 16:22 Freq: Status: Active Protocol: Document 08/12/19 15:15 DCW (Rec: 08/12/19 16:03 DCW [id number]) OP-PT Subjective Patient Comments Patient Comments It's getting better. I can still feel it, but it's getting better. PT-OP-E Functional Tests Start: 07/31/19 16:22 Freq: Status: Active Protocol: Document 07/31/19 13:45 DCW (Rec: 07/31/19 16:58 DCW [id number]) Functional Tests Apley's Scratch Test Action 1- Left Lateral opposite shoulder Action 1- Right Lateral opposite shoulder Action 2- Left T2 Action 2- Right T5 Action 3- Left T10 Action 3- Right T9 PT-OP-F Manual Assessment Start: 07/31/19 16:22 Freq: Status: Active Protocol: Document 07/31/19 13:45 DCW (Rec: 08/03/19 09:46 DCW [id number]) Manual Assessments Soft Tissue Assessment Soft Tissue Mobility Assessment Moderate-severe tone in L rhomboids Joint Mobility Assessment Joint Mobility Assessment Minimal mobility of scapula, poor scapulothoracic rhythm PT-OP-J Posture/Palpation/Skin Start: 07/31/19 16:22 Freq: Status: Active Protocol: Document 07/31/19 13:45 DCW (Rec: 08/03/19 09:46 DCW [id number]) Posture Evaluation Position Sitting Shoulder Posture (R) Rounded,(R) Forward PT-OP-K Range of Motion Start: 07/31/19 16:22 Freq: Status: Active Protocol: Document 07/31/19 13:45 DCW (Rec: 08/03/19 09:46 DCW [id number]) Shoulder Goniometric Range of Motion Shoulder Right Active Testing Position Sitting Flexion 170 Abduction 150 Left Active Shoulder ROM WFL No Testing Position Sitting Flexion 140 Abduction 70 Shoulder ROM Limitations Shoulder ROM Limitations Soft Tissue Tightness,Muscle Weakness,Muscle Tone,Pain PT-OP-L Special Tests Start: 07/31/19 16:22 Freq: Status: Active Protocol: Document 07/31/19 13:45 DCW (Rec: 08/03/19 09:46 DCW [id number]) Special Tests Shoulder Special Tests Passive ER Rotator Cuff Test Results Positive Left Gasca Haroldo Impingement Test Results Positive Bilaterally Empty Can Test Results Positive Left Belly Press Test Results Positive Left AC Joint Compression Test Results Negative PT-OP-M Strength Start: 07/31/19 16:22 Freq: Status: Active Protocol: Document 07/31/19 13:45 DCW (Rec: 08/03/19 09:46 DCW [id number]) Shoulder Strength Shoulder Manual Muscle Testing Left Flexion 3- Fair- Abduction (C5) 2+ Poor+ External Rotation 5 Normal Internal Rotation 5 Normal Comments Pt flexion and abduction strong in available ROM, however unable to move throughout full ROM PT-OP-T Assessment and Plan Start: 07/31/19 16:22 Freq: Status: Active Protocol: Document 01/06/20 17:13 DCW (Rec: 01/06/20 17:13 DCW [id number]) Physical Therapy Assessment Assessment Summary Assessment Pt did not return phone calls from scheduling department following reopening of clinic after Covid-19 closure. Pt will be discharged from skilled therapy at this time.
== END 2020-01-07 08:05 ==
LOC: PHYS 15:15
PROVIDERS: PCP Internal Medicine; Referring Provider Internal Medicine; Visit Provider Internal Medicine
DX: M25.512 Pain in left shoulder (principal); M25.612 Stiffness of left shoulder, not elsewhere classified; S46.092D Other injury of muscle(s) and tendon(s) of the rotator cuff of left shoulder, subsequent encounter
CPT/HCPCS: 97110; 97140; 97161

== ENCOUNTER → 2019-09-28 11:22 | Outpatient (CLI) | payer MEDICARE, OTHER, SELFPAY ==
--- NOTE | 2019-09-28 11:25 | DI.CT.S_ITS ---
PROCEDURE: CT CHEST ABD PEL W CON INDICATIONS: cll TECHNIQUE: After the administration of oral and intravenous contrast, 5 mm thick sections acquired from the lung apices to the symphysis. 5 mm coronal and sagittal reformats were performed, with additional 7 mm coronal MIP reformats through the lungs. For radiation dose reduction, the following was used: automated exposure control, adjustment of mA and/or kV according to patient size. COMPARISON: None. FINDINGS: Image quality: Excellent. CHEST: Lungs and pleura: No acute airspace opacities. There is mild paraseptal emphysema bilaterally at the apices. Mild atelectasis is present in the dependent lungs bilaterally. No pleural effusions or pneumothorax. Central and peripheral airways appear patent and normal in caliber. Mediastinum: Heart size is normal. No pericardial effusion. No mediastinal or hilar adenopathy by size criteria. Thoracic aorta and central pulmonary arteries are normal in size. Scattered atheromatous calcifications are present within the aortic arch. Esophagus is normal in caliber. No hiatal hernia. Chest wall: There are multiple shotty bilateral axillary lymph nodes, none of which meet the pathologic size criteria. Thyroid gland is unremarkable. ABDOMEN: Solid organs: Liver is normal in size and enhancement. Gallbladder is unremarkable. Biliary system is non dilated. Pancreas enhances normally. The spleen measures 19.8 cm in length. Multiple subcentimeter hypervascular foci are present within the spleen which may represent small hemangiomas. No adrenal nodules. Kidneys demonstrate normal size and enhancement, without hydronephrosis. Peritoneum and bowel: Bowel loops demonstrate normal wall thickness and caliber. The appendix is thin walled. There are scattered sigmoid diverticula. No evidence for diverticulitis. No free fluid or air. Nodes and vessels: There are innumerable enlarged retroperitoneal lymph nodes measuring up to 1.3 cm in short axis diameter. There are bilateral enlarged inguinal chain lymph nodes. A left inguinal chain node measures 1.6 cm in diameter. Aorta and inferior vena cava are normal in size. There are scattered atheromatous calcifications throughout the aorta and iliac arteries bilaterally. Miscellaneous: No ventral hernias. PELVIS: Genitourinary: Bladder wall thickness is normal. Miscellaneous: No inguinal adenopathy. There is small bilateral fat containing inguinal hernias. Bones: No suspicious bony lesions. No vertebral body compression fractures. Intraosseous hemangiomas are present at L1 and L2. IMPRESSION: 1. Retroperitoneal and iliac chain adenopathy consistent with the given diagnosis of CLL. 2. Marked splenomegaly with probable splenic hemangiomas as above. 3. Normal appendix. Diverticulosis. No acute diverticulitis. Dictated by: Terra Lopez M.D. on 09/28/2019 at 15:13 Approved by: Terra Lopez M.D. on 09/28/2019 at 16:01
--- NOTE | 2019-09-28 11:25 | DI.CT.S_ITS ---
PROCEDURE: CT SOFT TISSUE NECK W CON INDICATIONS: cll TECHNIQUE: After the administration of intravenous contrast, 3.0 mm axial sections acquired from the sella to the aortic arch. Additional oblique axial 3.0 mm sections acquired through the pharynx. 3 mm thick coronal and sagittal reformats were generated. For radiation dose reduction, the following was used: automated exposure control. COMPARISON: [facility], CT, CT CHEST ABD PEL W CON, 09/28/2019, 12:38. FINDINGS: Image quality: Excellent. Lymph nodes: Numerous borderline enlarged lymph nodes can be seen throughout the neck and within the supraclavicular regions. Mildly enlarged axillary lymph nodes can be seen. There is partial visualization of enlarged mediastinal lymph nodes. Vessels: Visualized vasculature appears patent. Neck spaces: The oropharynx, nasopharynx, and pharynx demonstrate no mucosal lesions. The vocal cords, false vocal cords, pyriform sinuses, epiglottis, vallecula, and tongue base all appear normal. Extramucosal spaces appear unremarkable. Glands: The parotid and submandibular glands appear normal. Thyroid gland demonstrates no significant CT abnormality. Miscellaneous: Visualized brain and orbits appear normal. Mild emphysematous changes can be seen at the lung apices. Superficial soft tissues appear normal. Bones: No suspicious bony lesions. Visualized sinuses and mastoids appear unremarkable. Age-appropriate bony degenerative changes are seen. IMPRESSION: Borderline enlarged lymph nodes can be seen throughout the neck, including within the supraclavicular regions. Mildly enlarged lymph nodes can be seen involving the axillary regions and the mediastinum. These imaging findings are consistent with the given history of CLL. Dictated by: Yogesh Fuentes M.D. on 09/28/2019 at 12:08 Approved by: Yogesh Fuentes M.D. on 09/28/2019 at 12:10
[2019-09-28 11:58] LABS: Hematocrit 39.2 % (41-53); Hemoglobin 13.1 g/dL (13.5-17.5); Mean Corpuscular HGB Conc 33.3 % (30-36); Mean Corpuscular Hemoglobin 29.6 PG (26-34); Mean Corpuscular Volume 88.9 fL (80-100); Platelet Count 105 X10^3/uL (150-400); Red Blood Cell Count 4.41 X10^6/uL (4.5-5.9); Red Cell Distribution Width 14.2 % (11.6-14.8); White Blood Cell Count 15.1 X10^3/uL (4.5-11.0)
[2019-09-28 11:59] LABS: Add Manual Diff / Slide Review YES
[2019-09-28 12:08] LABS: Alanine Aminotransferase 23 IU/L (<50); Albumin 4.7 g/dL (3.5-5.0); Albumin Globulin Ratio 1.8 (1.0-2.8); Alkaline Phosphatase 65 U/L (38-126); Aspartate Aminotransferase 25 IU/L (17-59); BUN Creatinine Ratio 13.4 (6-22); Bilirubin Total 0.8 mg/dL (0.2-1.3); Blood Urea Nitrogen 13 mg/dL (9-20); Calcium 9.6 mg/dL (8.4-10.2); Carbon Dioxide 27 mmol/L (22-32); Chloride 106 mmol/L (98-107); Estimated Glomerular Filt Rate > 60.0 mL/min (>60); Globulin 2.6 g/dL (1.7-4.1); Glucose 96 mg/dL (80-110); HEMOLYSIS < 15 (0-50); Lactate Dehydrogenase 315 U/L (313-618); Potassium 4.4 mmol/L (3.4-5.1); Sodium 139 mmol/L (137-145); Total Protein 7.3 g/dL (6.3-8.2)
[2019-09-28 12:16] LABS: Neutrophils Absolute Manual 4077 /uL (3000-5900); RBC Morphology Normal Morphology; Total Cells Counted 100
[2019-09-29 04:07] LABS: IGA 42 mg/dL (61-437); IGG 524 mg/dL (603-1613); IGM 11 mg/dL (20-172)
[2019-09-30 03:07] LABS: Beta-2-Microglobulin 2.2 mg/L (0.6-2.4)
== END ==
PROVIDERS: PCP Internal Medicine; Referring Provider Internal Medicine Hematology & Oncology; Visit Provider Internal Medicine Hematology & Oncology
DX: C91.10 Chronic lymphocytic leukemia of B-cell type not having achieved remission (principal); R16.1 Splenomegaly, not elsewhere classified; K57.30 Diverticulosis of large intestine without perforation or abscess without bleeding; K40.90 Unilateral inguinal hernia, without obstruction or gangrene, not specified as recurrent
CPT/HCPCS: 36415; 70491; 71260; 74177; 80053; 82232; 82784; 83615; 85025

== ENCOUNTER → 2019-10-26 11:40 | Oncology outpatient (ONC) | payer MEDICARE, OTHER, SELFPAY ==
[2019-09-28 10:22] VITALS: BP 151/86; PULSE 64; RESP 16; TEMP 36.9; O2SAT 96
--- NOTE | 2019-09-28 10:29 | P.CONONC_ITS ---
History of Present Illness - Data of Consult Patient: new to practice Consult date: 09/28/19 Requesting Physician: Julio C Clark MD Primary Care Provider: Julio C Clark MD - Consult Narrative Reason for consult: Chronic lymphocytic leukemia Narrative: Jer Washington is a 64 year old male who has a previous history of coronary artery disease being followed at [place] by Dr. Longoria. Patient underwent cardiac stents probably 3-4 years ago. According to patient that on retrospective, Dr. Clark told him that at that time the white blood cell count seemed to be slightly elevated. Recently the white cell count have increased with concurrent mild thrombocytopenia. Patient was evaluated by Dr. Clark on 07/10/2019. The lab results showed WBC 13.3, hemoglobin 12.7, hematocrit 38.2, Platelet counts 94. Atypical lymphocytes and lymphocytes accounted for 75% the total cells. The labs were repeated in 1 week on 07/17/2019. It showed WBC 14.5, hemoglobin 13.1, hematocrit 38.1. Lymphocytes and atypical lymphocytes accounted for more than 70%. I reviewed the available records in [facility]. About 2 years ago on 10/06/2017, patient's CBC showed WBC 12.5, hemoglobin 13.1, and platelets 152. Clinically, patient reports no symptoms or signs. Patient reports no fever no chills. No shortness breath and no chest pain. He denies any nausea or vomiting. He denies abdominal pain, diarrhea or constipation. He denies any weight loss. He denies any significant night sweats. He denies any fever. He said that his only symptom is been told that he has elevated white blood cell count. Patient reports pain?: No Home Medications and Allergies Home Medications Medication Instructions Recorded Confirmed Type aspirin [Aspir-81] 81 mg PO DAILY 08/05/18 09/28/19 History atorvastatin 80 mg PO BEDTIME 08/05/18 09/28/19 History Allergies Allergy/AdvReac Type Severity Reaction Status Date / Time No Known Drug Allergies Allergy Verified 07/17/19 10:05 Medical History - Medical, Surgical, Family History Medical History: Medical History (Last Updated 09/28/19 @ 10:55 by Adam Hernandez MD) CAD (coronary artery disease) Chronic anemia CLL (chronic lymphocytic leukemia) Current smoker Former smoker Hyperlipidemia Sinus bradycardia Surgical History: Surgical History (Last Updated 09/28/19 @ 10:42 by Adma Hernandez MD) Hx of heart artery stent Onset Date: ~2013 S/P foot surgery, left Onset Date: ~07/2018 - Social History Smoking Status: Current every day smoker (1 pack a day) Substance Use Type: marijuana (daily) Alcohol Intake: current (beer and whiskey every week) Review of Systems - Patient Self-Reported Symptoms SR Constitution: Fatigue/Malaise, Night Sweats SR ears, nose, mouth, throat issues: Ears ringing SR Musculoskeletal issues: Joint pain or swelling (shoulder), Cold hands or feet All systems PM: reviewed and no additional remarkable complaints except as stated (those in History of Present Illness, and Patient Self-Reported Symptoms (see above)) Exam Vital signs: Vital Signs Temp Pulse Resp BP Pulse Ox 09/28/19 10:22 98.4 F 64 16 151/86 H 96 Intake and Output 09/27/19 09/28/19 09/28/19 23:59 07:59 15:59 Other: Weight 100.4 kg Patient Weight 09/28/19 23:59 Weight 100.4 kg Narrative: ECOG 1 Vitals above reviewed Constitutional: WDWN, well nourished, and well groomed. NAD. Pleasant and cooperative. HEENT: NCAT, EOMI, PERRLA. Anicteric sclera. Neck: Supple and symmetrical, no palpable masses. No palpable thyromegaly. Respiratory: No use of accessory muscles. CTAB, no wheezes. Cardiovascular: RRR, S1 and S2 normal, no M/G/R. No edema of lower extremities. Abdomen: Soft, no palpable masses. No palpable hepatomegaly. Spleen just palpable beneath the left costal margin with mild tenderness. No hernia. Lymphatic: Multiple 0.5 - 1 cm lymph nodes palpable along the posterior margin of the cleidomastoid muscle on both side of the neck, movable, nontender. One tiny 0.5 lymph node palpable in the right axilla. No lymph nodes palpable in the left axilla or the groins. Musculoskeletal: normal gait and station Skin: No rashes, lesions, or ulcers. No induration, or subcutaneous nodules. Neurological: CN II-XII grossly intact. No focal motor or sensory deficit. Psychiatric: Normal judgment and insight. AOx3. Normal memory (recent and remote). Normal mood and affect. Results - Labs Reviewed. Assessment and Plan (1) CLL (chronic lymphocytic leukemia) Overview: 64-year-old gentleman with history of hyperlipidemia and coronary artery disease now was found to have an elevated white blood cell count mainly due to increase in atypical lymphocytes and lymphocytes in 06/2019. Elevated white blood cell count was recorded in September 2017. Now it also showed mild thrombocytopenia in addition to lymphocytosis. On physical examination, he has bilateral neck tiny multiple lymph nodes and right axillary tiny lymph nodes palpable as well as palpable spleen. The presentation is highly suspicious for possible chronic lymphocytic leukemia. Assessment:. I explained to the patient that CLL is a chronic disease. I will obtain blood samples to evaluate first. Given that the spleen is palpable on my physical examination, I will obtain CT of the neck chest abdomen pelvis to evaluate the lymphadenopathy and also will serve as a basis against which we can compare with in the future. Patient voiced understanding. One of the concern is the new developed thrombocytopenia which was not present in September of 2017. Plan: CBC, CMP, LDH, B2M, Immunoglobulin panel Flowcytometry for leukemia/lymphoma CT NCAP w/contrast RTC in one month, CBC/D
--- NOTE | 2019-10-26 12:07 | P.PNONC_ITS ---
PN -Subjective Interval history: ID/CC: 64 year old male with CLL: HPI: Jer Washington is a 64 year old male who has a previous history of coronary artery disease being followed at [place] by Dr. Longoria. Patient underwent cardiac stents probably in 2017. According to patient that on retrospective, Dr. Clark told him that at that time the white blood cell count seemed to be slightly elevated. Patient was evaluated by Dr. Clark on 07/10/2019. The lab results showed WBC 13.3, hemoglobin 12.7, hematocrit 38.2, Platelet counts 94. A typical lymphocytes and lymphocytes accounted for 75% the total cells. The labs were repeated in 1 week on 07/17/2019. It showed WBC 14.5, hemoglobin 13.1, hematocrit 38.1. Lymphocytes and atypical lymphocytes accounted for more than 70%. [facility] About 2 years ago on 10/06/2017, patient's CBC showed WBC 12.5, hemoglobin 13.1, and platelets 152. Interval History: Clinically, patient reports no symptoms or signs. Patient reports no fever no chills. No shortness breath and no chest pain. He denies any nausea or vomiting. He denies abdominal pain, diarrhea or constipation. He denies any weight loss. He denies any significant night sweats. He denies any fever. - Patient Self-Reported Symptoms SR Constitution: Fatigue/Malaise, Night Sweats SR ears, nose, mouth, throat issues: Ears ringing SR Musculoskeletal issues: Joint pain or swelling (shoulder), Cold hands or feet - Additional ROS All systems PM: reviewed and no additional remarkable complaints except as stated Home Medications and Allergies Home Medications Medication Instructions Recorded Confirmed Type aspirin [Aspir-81] 81 mg PO DAILY 08/05/18 10/26/19 History atorvastatin 80 mg PO BEDTIME 08/05/18 10/26/19 History Allergies Allergy/AdvReac Type Severity Reaction Status Date / Time No Known Drug Allergies Allergy Verified 07/17/19 10:05 Exam Vital signs: 10/26/19 18:03 Last Vital Signs Temp 98.2 F 10/26/19 12:12 Pulse 68 10/26/19 12:12 Resp 16 10/26/19 12:12 BP 138/71 10/26/19 12:12 Pulse Ox 96 10/26/19 12:12 Narrative: ECOG 1 Vitals above reviewed Constitutional: WDWN, well nourished, and well groomed. NAD. Pleasant and cooperative. HEENT: NCAT, EOMI, PERRLA. Anicteric sclera. Neck: Supple and symmetrical, no palpable masses. No palpable thyromegaly. Respiratory: No use of accessory muscles. CTAB, no wheezes. Cardiovascular: RRR, S1 and S2 normal, no M/G/R. No edema of lower extremities. Abdomen: Soft, no palpable masses. No palpable hepatomegaly. Spleen just palpable beneath the left costal margin with mild tenderness. No hernia. Lymphatic: Multiple 0.5 - 1 cm lymph nodes palpable along the posterior margin of the cleidomastoid muscle on both side of the neck, movable, nontender. One tiny 0.5 lymph node palpable in the right axilla. No lymph nodes palpable in the left axilla or the groins. Musculoskeletal: normal gait and station Skin: No rashes, lesions, or ulcers. No induration, or subcutaneous nodules. Neurological: CN II-XII grossly intact. No focal motor or sensory deficit. Psychiatric: Normal judgment and insight. AOx3. Normal memory (recent and remote). Normal mood and affect. Results - Labs Reviewed Assessment and Plan (1) CLL (chronic lymphocytic leukemia) Overview: 64-year-old gentleman with history of hyperlipidemia and coronary artery disease now was found to have an elevated white blood cell count mainly due to increase in atypical lymphocytes and lymphocytes in 06/2019. Elevated white blood cell count was recorded in September 2017. Now it also showed mild thrombocytopenia in addition to lymphocytosis. On physical examination, he has bilateral neck tiny multiple lymph nodes and right axillary tiny lymph nodes palpable as well as palpable spleen. The presentation is highly suspicious for possible chronic lymphocytic leukemia. Assessment: Cytometry result is consistent with chronic lymphocytic leukemia. CT scan showed borderline enlarged neck lymph nodes and slightly enlarged retroperitoneal lymph nodes. It did shows significantly enlarged spleen which was thought to be due to the presence of multiple hemangiomas in the spleen. Patient has mild thrombocytopenia which might be related to the enlarged spleen. I talked with the patient about possible options including active surveillance, chemotherapy with bendamustine and rituximab, ibrutinib treatment, venetoclax with obinutuzumab etc. I explained to the patient about the pros and cons of each approach. Eventually patient opted for active surveillance. Plan: RTC in 6 months, CBC, CMP, LDH, B2M
[2019-10-26 12:12] VITALS: BP 138/71; PULSE 68; RESP 16; TEMP 36.8; O2SAT 96
== END ==
PROVIDERS: PCP Internal Medicine; Referring Provider Internal Medicine; Visit Provider Internal Medicine Hematology & Oncology
DX: C91.10 Chronic lymphocytic leukemia of B-cell type not having achieved remission (principal); D69.6 Thrombocytopenia, unspecified; I25.10 Atherosclerotic heart disease of native coronary artery without angina pectoris; E78.5 Hyperlipidemia, unspecified; Z95.5 Presence of coronary angioplasty implant and graft
CPT/HCPCS: 36415; 70491; 71260; 74177; 80053; 82232; 82784; 83615; 85025; 88184; 88185; 88189; 99205; 99214; 99215

== ENCOUNTER → 2020-07-25 08:57 | Outpatient (CLI) | payer MEDICARE, OTHER, SELFPAY ==
[2020-07-25 10:23] LABS: Hematocrit 37.7 % (41-53); Hemoglobin 12.8 g/dL (13.5-17.5); Mean Corpuscular Hemoglobin 30.1 PG (26-34); Mean Corpuscular Volume 88.4 fL (80-100); Platelet Count 97 X10^3/uL (150-400); Red Blood Cell Count 4.27 X10^6/uL (4.5-5.9); Red Cell Distribution Width 14.3 % (11.6-14.8); White Blood Cell Count 14.4 X10^3/uL (4.5-11.0)
[2020-07-25 10:25] LABS: Add Manual Diff / Slide Review YES
[2020-07-25 10:41] LABS: Alanine Aminotransferase 20 IU/L (<50); Albumin 4.4 g/dL (3.5-5.0); Albumin Globulin Ratio 2.2 (1.0-2.8); Alkaline Phosphatase 64 U/L (38-126); Anisocytosis 1+; Aspartate Aminotransferase 19 IU/L (17-59); BUN Creatinine Ratio 15.2 (6-22); Bilirubin Total 0.5 mg/dL (0.2-1.3); Blood Urea Nitrogen 16 mg/dL (9-20); Calcium 9.4 mg/dL (8.4-10.2); Carbon Dioxide 27 mmol/L (22-32); Chloride 105 mmol/L (98-107); Cholesterol 116 mg/dL (140-199); Estimated Glomerular Filt Rate > 60.0 mL/min (>60); Glucose 103 mg/dL (80-110); HDL Cholesterol 54 mg/dL (40-60); HEMOLYSIS < 15 (0-50); LDL Cholesterol Calculated 43 mg/dL (<100); Neutrophils Absolute Manual 4032 /uL (3000-5900); Potassium 4.2 mmol/L (3.4-5.1); Sodium 138 mmol/L (137-145); Total Cells Counted 100; Total Protein 6.4 g/dL (6.3-8.2); Triglycerides 93 mg/dL (35-150)
[2020-07-25 10:42] LABS: Lactate Dehydrogenase 328 U/L (313-618)
[2020-07-27 04:36] LABS: Beta-2-Microglobulin 2.6 mg/L (0.6-2.4)
== END ==
PROVIDERS: Internal Medicine Hematology & Oncology; PCP Internal Medicine; Referring Provider Internal Medicine Cardiovascular Disease; Visit Provider Internal Medicine Cardiovascular Disease
DX: I25.10 Atherosclerotic heart disease of native coronary artery without angina pectoris (principal); C91.10 Chronic lymphocytic leukemia of B-cell type not having achieved remission
CPT/HCPCS: 36415; 80053; 80061; 82232; 83615; 85007; 85025

== ENCOUNTER → 2020-07-27 09:08 | Outpatient (CLI) | payer MEDICARE, OTHER, SELFPAY ==
--- NOTE | 2020-07-27 | DI.ECHO.S_ITS ---
[facility]---------+ [facility] +---------+ : : [address] [place] : : : : [id number] : : : : Phone: [phone]+ Echocardiogram Report + + :Name: DOROTHY HEREDIA Study Date: 07/27/2020 Height: 72 in : :[facility] ReadingLocation: Weight: 210 lb : : Gender: Male BSA: 2.2 m2 : :: 1955 Age: 65 yrs BP: 162/90 mmHg: :Reason For Study: ATHEROSCLEROTIC HEART DISEASE : :Ordering Physician: IGOR, : :DANYEL Performed By: Ami Barreto : :Referring: DANYEL LONGORIA : + + Interpretation Summary The left ventricle is normal in size. Trabeculae near apex are visualized Left ventricular systolic function appears normal without focal wall motion abnormalities. The ejection fraction is estimated to be 60-65%. There has been no significant change since the previous exam. Diastolic parameters suggest a relaxation abnormality of the left ventricle, consistent with probable normal filling pressures. The right ventricle is borderline dilated. The right ventricular systolic function is normal. Pulmonary artery pressures cannot be estimated because of the lack of a measurable TR jet velocity but the IVC suggests a CVP of around 8 mmHg. The left atrium is severely dilated. The right atrium is mild to moderately dilated. There is mild aortic regurgitation. There is no other significant valvular heart disease. The ascending aorta is mild-moderately enlarged. Procedure: A two-dimensional transthoracic echocardiogram with color flow and Doppler was performed. The study quality was technically adequate. Comparison is made with the echocardiogram of 07/10/2019. The patient was in sinus bradycardia with heart rates between 57-63 bpm during the exam. Left Ventricle: The left ventricle is normal in size. There is mild concentric left ventricular hypertrophy. Trabeculae near apex are visualized. Left ventricular systolic function appears normal without focal wall motion abnormalities. The ejection fraction is estimated to be 60-65%. There has been no significant change since the previous exam. Diastolic parameters suggest a relaxation abnormality of the left ventricle, consistent with probable normal filling pressures. Right Ventricle: The right ventricle is borderline dilated. The right ventricular systolic function is normal. Atria: The left atrium is severely dilated. The right atrium is mild to moderately dilated. There is no Doppler evidence for an interatrial shunt. Mitral Valve: The mitral valve is normal in structure and function. There is trace mitral regurgitation. Aortic Valve: The aortic valve is trileaflet. The aortic valve opens well. There is no aortic valve stenosis. There is mild aortic regurgitation. Tricuspid Valve: The tricuspid valve is normal in structure and function. Pulmonary artery pressures cannot be estimated because of the lack of a measurable TR jet velocity but the IVC suggests a CVP of around 8 mmHg. There is trace tricuspid regurgitation. Pulmonic Valve: The pulmonic valve is not well seen, but is grossly normal. There is no pulmonic valvular regurgitation. There is no other significant valvular heart disease. Great Vessels: The aortic root is normal size. The ascending aorta is mild- moderately enlarged. The IVC is dilated (diameter is greater than 2.1 cm) yet it collapses greater than 50% with a sniff. This suggests a right atrial pressure of 8 mm Hg. Pericardium/ Pleura There is no pericardial effusion. There is no pleural effusion. MMode/2D Measurements & Calculations LVIDd: 5.8 cm LVOT diam: 2.2 cm LVIDs: 4.0 cm Ao root diam: 3.5 cm FS: 30.4 % asc Aorta Diam: 4.2 cm EPSS: 0.93 cm Ao Arch Diam (Prox Trans): 3.8 cm IVSd: 1.2 cm LVPWd: 0.85 cm LV luis. diameter/BSA (cm/m^2): 2.6 LV sys. diameter/BSA (cm/m^2): 1.8 LA A2 area: 31.5 cm2 RA long axis: 6.0 cm LA A4 area: 29.0 cm2 RA area: 25.2 cm2 LA length (vol): 5.9 cm RA vol: 89.9 ml LA vol: 131.2 ml RA : 41.3 ml/m2 LA vol index: 60.3 ml/m2 IVC diam: 2.1 cm RVD1 (basal): 3.8 cm TAPSE: 2.6 cm Doppler Measurements & Calculations Ao V2 max: 130.8 cm/sec LVOT Max Rishabh: 91.0 cm/sec Ao V2 mean: 85.2 cm/sec LV V1 max P.3 mmHg Ao max P.8 mmHg LV V1 VTI: 19.2 cm Ao mean P.4 mmHg MARY(I,D): 2.8 cm2 Ao V2 VTI: 26.6 cm MARY(V,D): 2.7 cm2 sev ratio: 0.72 MARY indexed to BSA (cm^2/m^2): 1.3 MV E max rishabh: 79.5 cm/sec PA V2 max: 78.2 cm/sec MV A max rishabh: 82.2 cm/sec PA V2 mean: 54.9 cm/sec MV E/A: 0.97 PA mean P.4 mmHg Med Peak E' Rishabh: 7.4 cm/sec PA pr(Accel): 24.2 mmHg E/E' med: 10.7 Lat Peak E' Rishabh: 6.7 cm/sec E/E' lat: 11.8 E/e' average: 11.3 MV dec time: 0.25 sec SV(LVOT): 73.2 ml Reading Physician:07:02 PM
== END ==
PROVIDERS: PCP Internal Medicine; Referring Provider Internal Medicine Cardiovascular Disease; Visit Provider Internal Medicine Cardiovascular Disease
DX: I35.1 Nonrheumatic aortic (valve) insufficiency (principal); I77.89 Other specified disorders of arteries and arterioles; I25.10 Atherosclerotic heart disease of native coronary artery without angina pectoris
CPT/HCPCS: 93306

== ENCOUNTER 2020-12-14 10:56 | Emergency (ER) | payer MEDICARE, OTHER, SELFPAY ==
[2020-12-14] VITALS (12 sets, daily range): BP systolic 130–159; BP diastolic 68–89; PULSE 56–70; RESP 14–22; TEMP 36.6; O2SAT 96–100; BMI 29.1
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
[2020-12-14] MEDS: KETOROLAC 30 MG/ML VIAL IM (13:07)
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
== END 2020-12-14 14:47 | disposition home or self-care (01) ==
PROVIDERS: Emergency Provider Emergency Medicine; PCP Internal Medicine
DX: S76.219A Strain of adductor muscle, fascia and tendon of unspecified thigh, initial encounter (principal); S32.030A Wedge compression fracture of third lumbar vertebra, initial encounter for closed fracture; R42 Dizziness and giddiness; R10.2 Pelvic and perineal pain; S00.83XA Contusion of other part of head, initial encounter; V29.9XXA Motorcycle rider (driver) (passenger) injured in unspecified traffic accident, initial encounter
CPT/HCPCS: 70450; 72100; 72170; 96372; 99284; J1885

== ENCOUNTER → 2021-04-23 13:50 | Outpatient (CLI) | payer MEDICARE, OTHER, SELFPAY | PROVIDERS: PCP Internal Medicine; Referring Provider Physician Assistant; Visit Provider Physician Assistant | DX: R30.9 Painful micturition, unspecified (principal) | CPT/HCPCS: 87077; 87086; 87186 ==

== ENCOUNTER → 2021-05-09 08:28 | Outpatient (CLI) | payer MEDICARE, OTHER, SELFPAY ==
[2021-05-09 10:56] LABS: Bacteria Urine Moderate (10-30); Culture Indicated Urine Specimen Cultured; RBC Urine >100/HPF (0-5/HPF); Squamous Epithelial Cell Urine 0-1 /HPF (0-5/HPF); WBC Urine >100/HPF (0-5/HPF)
== END ==
PROVIDERS: PCP Internal Medicine; Referring Provider Internal Medicine; Visit Provider Internal Medicine
DX: N39.0 Urinary tract infection, site not specified (principal)
CPT/HCPCS: 81015; 87077; 87086; 87186

== ENCOUNTER → 2021-09-18 08:19 | Outpatient (CLI) | payer MEDICARE, OTHER, SELFPAY ==
[2021-09-18 10:33] LABS: Alanine Aminotransferase 23 IU/L (<50); Albumin 4.7 g/dL (3.5-5.0); Albumin Globulin Ratio 2.4 (1.0-2.8); Alkaline Phosphatase 53 U/L (38-126); Aspartate Aminotransferase 22 IU/L (17-59); BUN Creatinine Ratio 17.5 (6-22); Bilirubin Total 0.8 mg/dL (0.2-1.3); Blood Urea Nitrogen 18 mg/dL (9-20); Calcium 9.4 mg/dL (8.4-10.2); Carbon Dioxide 31 mmol/L (22-32); Chloride 106 mmol/L (98-107); Cholesterol 126 mg/dL (140-199); Estimated Glomerular Filt Rate > 60 mL/min (>60); Glucose 104 mg/dL (80-110); HDL Cholesterol 57 mg/dL (40-60); HEMOLYSIS < 15 (0-50); LDL Cholesterol Calculated 48 mg/dL (<100); Potassium 4.7 mmol/L (3.4-5.1); Sodium 140 mmol/L (137-145); Total Protein 6.7 g/dL (6.3-8.2); Triglycerides 103 mg/dL (35-150)
== END ==
PROVIDERS: PCP Internal Medicine; Referring Provider Internal Medicine Cardiovascular Disease; Visit Provider Internal Medicine Cardiovascular Disease
DX: I25.10 Atherosclerotic heart disease of native coronary artery without angina pectoris (principal)
CPT/HCPCS: 36415; 80053; 80061

== ENCOUNTER → 2022-11-02 08:42 | Outpatient (CLI) | payer MEDICARE, OTHER, SELFPAY ==
[2022-11-02 09:21] LABS: Alanine Aminotransferase 24 IU/L (<50); Albumin 4.3 g/dL (3.5-5.0); Albumin Globulin Ratio 2.3 (1.0-2.8); Alkaline Phosphatase 56 U/L (38-126); Aspartate Aminotransferase 20 IU/L (17-59); BUN Creatinine Ratio 17.3 (6-22); Bilirubin Total 0.9 mg/dL (0.2-1.3); Blood Urea Nitrogen 17 mg/dL (9-20); Calcium 9.3 mg/dL (8.4-10.2); Carbon Dioxide 31 mmol/L (22-32); Chloride 104 mmol/L (98-107); Cholesterol 114 mg/dL (140-199); Estimated Glomerular Filt Rate > 60 mL/min (>60); Globulin 1.9 g/dL (1.7-4.1); Glucose 110 mg/dL (80-110); HDL Cholesterol 48 mg/dL (40-60); HEMOLYSIS < 15 (0-50); LDL Cholesterol Calculated 44 mg/dL (<100); Potassium 4.5 mmol/L (3.4-5.1); Sodium 140 mmol/L (137-145); Total Protein 6.2 g/dL (6.3-8.2); Triglycerides 108 mg/dL (35-150)
== END ==
PROVIDERS: PCP Internal Medicine; Referring Provider Internal Medicine Cardiovascular Disease; Visit Provider Internal Medicine Cardiovascular Disease
DX: I25.10 Atherosclerotic heart disease of native coronary artery without angina pectoris (principal)
CPT/HCPCS: 36415; 80053; 80061

== ENCOUNTER → 2023-10-25 15:17 | Outpatient (CLI) | payer MEDICARE, OTHER, SELFPAY ==
[2023-10-25 15:47] LABS: INR 1.2 (0.9-1.3); Prothrombin Time 13.8 SECONDS (9.4-12.5)
[2023-10-25 15:49] LABS: Add Manual Diff / Slide Review YES; Hematocrit 25.5 % (41-53); Hemoglobin 8.8 g/dL (13.5-17.5); Mean Corpuscular HGB Conc 34.4 % (30-36); Mean Corpuscular Hemoglobin 33.5 PG (26-34); Mean Corpuscular Volume 97.3 fL (80-100); Platelet Count 100 X10^3/uL (150-400); Red Blood Cell Count 2.62 X10^6/uL (4.5-5.9); Red Cell Distribution Width 15.9 % (11.6-14.8); White Blood Cell Count 11.8 X10^3/uL (4.5-11.0)
[2023-10-25 16:29] LABS: Anisocytosis 1+; Neutrophils Absolute Manual 2832 /uL (3000-5900); Total Cells Counted 100
[2023-10-25 17:05] LABS: Alanine Aminotransferase 17 IU/L (<50); Albumin 4.8 g/dL (3.5-5.0); Albumin Globulin Ratio 2.7 (1.0-2.8); Alkaline Phosphatase 51 U/L (38-126); Aspartate Aminotransferase 22 IU/L (17-59); BUN Creatinine Ratio 18.6 (6-22); Bilirubin Total 1.2 mg/dL (0.2-1.3); Blood Urea Nitrogen 19 mg/dL (9-20); Calcium 9.6 mg/dL (8.4-10.2); Carbon Dioxide 26 mmol/L (22-32); Chloride 107 mmol/L (98-107); Estimated Glomerular Filt Rate > 60 mL/min (>60); Globulin 1.8 g/dL (1.7-4.1); Glucose 144 mg/dL (80-110); HEMOLYSIS < 15 (0-50); Potassium 4.3 mmol/L (3.4-5.1); Sodium 139 mmol/L (137-145); Total Protein 6.6 g/dL (6.3-8.2)
== END ==
PROVIDERS: PCP Internal Medicine; Referring Provider Internal Medicine; Visit Provider Internal Medicine
DX: C91.10 Chronic lymphocytic leukemia of B-cell type not having achieved remission (principal); I10 Essential (primary) hypertension; D64.9 Anemia, unspecified
CPT/HCPCS: 80053; 85007; 85025; 85610

== ENCOUNTER → 2023-10-29 13:39 | Outpatient (CLI) | payer MEDICARE, OTHER, SELFPAY ==
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
== END ==
PROVIDERS: PCP Internal Medicine; Referring Provider Internal Medicine; Visit Provider Internal Medicine
DX: R19.02 Left upper quadrant abdominal swelling, mass and lump (principal); R16.1 Splenomegaly, not elsewhere classified; R59.0 Localized enlarged lymph nodes
CPT/HCPCS: 74177; Q9967

== ENCOUNTER → 2023-12-04 09:32 | Outpatient (CLI) | payer MEDICARE, OTHER, SELFPAY ==
[2023-12-04 10:52] LABS: Cholesterol 92 mg/dL (140-199); HDL Cholesterol 43 mg/dL (40-60); LDL Cholesterol Calculated 30 mg/dL (<100); Triglycerides 95 mg/dL (35-150)
== END ==
PROVIDERS: PCP Internal Medicine; Referring Provider Internal Medicine Cardiovascular Disease; Visit Provider Internal Medicine Cardiovascular Disease
DX: I25.10 Atherosclerotic heart disease of native coronary artery without angina pectoris (principal)
CPT/HCPCS: 36415; 80061

== ENCOUNTER → 2025-02-02 08:18 | Outpatient (CLI) | payer MEDICARE, OTHER, SELFPAY | PROVIDERS: PCP Internal Medicine; Referring Provider Internal Medicine; Visit Provider Internal Medicine | DX: Z12.11 Encounter for screening for malignant neoplasm of colon (principal) | CPT/HCPCS: 82274 ==

== ENCOUNTER 2025-03-01 08:42 | Day surgery (SDC) | payer MEDICARE, OTHER, SELFPAY ==
--- NOTE | 2025-03-01 | PATH_ITS ---
[facility] Accession Number: [id number] No. of containers..03 Tissue . 01 Material submitted: . PART A: colon - COLON, RANDOM BIOPSIES PART B: colon - COLON, 20 CM POLYPS PART C: rectum - RECTAL POLYPS . 01 Diagnosis: A: RANDOM COLON, BIOPSIES: Colonic mucosa with mild active inflammation, negative for dysplasia, granulomas, or malignancy, see comment. - B: COLON, 20 CM, POLYPECTOMIES: Adenocarcinoma, moderately differentiated, limited to head of polyp in one of four fragments submitted, 1 mm superficially invasive into the muscularis mucosa, negative for definite submucosal invasion. See comment. 1.5 mm from the nearest cauterized tissue margin. Negative for lymphovascular invasion. No loss of nuclear expression of MMR proteins: low probability of MSI-H, see comment. - C: RECTUM, POLYPECTOMIES: Fragments of tubular adenoma and hyperplastic polyp. [facility] 03/10/2025 1221 Local . 01 Comment: Part B: Immunohistochemistry for mismatch repair protein status is performed with the following results: MLH1: Intact nuclear expression. PMS2: Intact nuclear expression. MSH2: Intact nuclear expression. MSH6: Intact nuclear expression. Interpretation: No loss of nuclear expression of MMR proteins: low probability of MSI-H. -Please note that there are exceptions to the above IHC interpretations. These results should not be considered in isolation, and clinical correlation (with genetic counseling, if clinically indicated) is recommended to assess the need for germline testing. Background of tubular adenoma with high grade dysplasia. Three additional fragments with tubular adenoma and tubulovillous adenoma. - The diagnosis of adenocarcinoma was discussed with Sofia Eubanks at 6:00 PM, on 03-09-2025. -As part of ongoing quality technician, part B was reviewed by Dr. Andreas Melara who agrees with the interpretation. - Part A: Specific features of chronic injury such as crypt architectural distortion, basal plasmacytic infiltrates, and granulomas are not seen. Acute ischemic changes are not seen, however, ischemic colitis should remain on the differential in the appropriate clinical context. The differential includes infection, medication-related injury, and mucosal trauma/prolapse, among others. Inflammatory bowel disease cannot be entirely excluded. Clinical correlation is recommended. -- Technical Note: The immunohistochemical stains reported were performed at [facility] ([address], [facility] [address]). This test was developed, and the performance characteristics were validated by [facility]. It has not been cleared or approved by the Food and Drug Administration. . 01 Electronically signed: . Judah Martin MD, Pathologist NPI- [id number] . 01 Gross description: . Received are three formalin-filled containers each labeled with the patient's name. . A. In a container labeled 1. Random colon, are four fragments of nayak, soft tissue which range in size from 0.2 x 0.2 x 0.2 cm to 0.4 x 0.2 x 0.2 cm. All fragments are totally in cassette A1. B. In a container labeled 2. 20 cm polyps, are four fragments of nayak, soft tissue. The first measures 0.6 x 0.6 x 0.6 cm, bisected, and totally submitted in cassette B1. The second piece measures 0.5 x 0.4 x 0.6 cm, bisected, and totally submitted in cassette B1. The third piece measures 0.7 x 0.6 x 0.6 cm, bisected, and totally submitted in cassette B2. The last piece measures 1.0 x 1.0 x 1.4 cm, bisected, and totally submitted in cassette B3. C. In a container labeled 3. Rectal polyps, are four fragments of nayak, soft tissue which range in size from less than 0.1 cm to 0.4 x 0.3 x 0.3 cm. All fragments are totally submitted in cassette C1. ([id number]) /CHIQUI 03/09/2025 1321 Local . 01 Pathologist provided ICD-10: Z12.11 . 01 CPT . 482445, 091239, 616174, [id number], [id number] Specimen Comment: A courtesy copy of this report has been sent to [phone] Performed at: [address] [facility], [place], [place] [id number] MD Chao Bauer MD Phone: [phone]
[2025-03-01] MEDS: LACTATED RINGERS 1,000 ML 120 ML IV ×2 (09:09→10:45)
[2025-03-01 09:12] VITALS: BP 146/83; PULSE 68; RESP 18; TEMP 36.3; O2SAT 96
--- NOTE | 2025-03-01 09:12 | PM.HP.IH.1 ---
History of Present Illness History of Present Illness Date Patient Seen: 03/01/25 Chief complaint: SDC Narrative: Patient with a history of CLL and during chemotherapy developed diarrhea. Testing showed fit test positive. Need for colonoscopy to rule out underlying colitis. Also this is 1st screening colonoscopy. [facility] Medical History (Updated 01/26/25 @ 09:48 by Julio C Clark MD) Current smoker Chronic anemia CLL (chronic lymphocytic leukemia) Former smoker Hyperlipidemia Sinus bradycardia CAD (coronary artery disease) Surgical History S/P foot surgery, left (~07/2018) Hx of heart artery stent (~2013) Social History household members: significant other alcohol intake: current (beer and whiskey every week) substance use type: marijuana (daily) Meds Home Medications and Allergies Home Medications ?Medication ?Instructions ?Recorded ?Confirmed ?Type aspirin 81 mg tablet,delayed 81 mg PO DAILY 08/05/18 01/26/25 History release (Aspir-) meloxicam 15 mg tablet 15 mg PO DAILY #90 tabs 01/26/25 01/26/25 Rx rosuvastatin 10 mg tablet 10 mg PO DAILY #90 tabs 01/26/25 01/26/25 Rx venetoclax 100 mg tablet 400 mg PO DAILY 01/26/25 01/26/25 History (Venclexta) sodium,potassium,mag sulfates 17.5 See Rx Instructions PO .COMPLEX 02/08/25 Rx gram-3.13 gram-1.6 gram oral soln #354 mL (Suprep Bowel Prep Kit) Allergies Allergy/AdvReac Type Severity Reaction Status Date / Time atorvastatin AdvReac Severe Joint Pain Verified 01/26/25 09:16 Exam Narrative Exam Narrative: Oropharynx free of lesions Chest clear to auscultation percussion Cardiac exam reveals no S3 or murmur Assessment & Plan Assessment & Plan narrative: History of diarrhea and fit test positive rule out underlying colitis. Risks, benefits, alternatives have been explained. Time-Based Coding :: [TOTAL MINUTES] spent with patient and on the chart (including review of chart, obtaining history, exam, reviewing outside data, placing orders, documenting exam and treatment plan, and counseling patient) on [DATE]. PROFEE Ink Technician Document charge(s): No
--- NOTE | 2025-03-01 09:14 | PM.OP.COLON ---
Operative Date/Time/Diagnoses Date of procedure: 03/01/25 Time of procedure: 09:39 Pre-op diagnosis: See indication and findings Post-op diagnosis: same Procedure & Clinicians Study performed: Colonoscopy Same procedure(s) as scheduled: Yes Indications: Diarrhea and fit test positive Surgeon: Jose Luis Soriano Anesthesia Type: Other Procedure Notes Procedure in detail: After informed consent was obtained the patient was placed in left lateral decubitus position. The video colonoscope was introduced the rectum slowly advanced cecum. Preparation was good. On slow withdrawal mucosa was carefully examined. The scope was removed. The patient tolerated the procedure well. Blood loss none Complications none Sedation mac Findings 1. Negative colonoscopy to cecum Given negative colonoscopy and history of polyps stretches next colonoscopy out to 7 years from now.
--- NOTE | 2025-03-01 10:25 | PM.OP.COLON ---
Operative Date/Time/Diagnoses Date of procedure: 03/01/25 Time of procedure: 10:28 Pre-op diagnosis: See indication and findings Post-op diagnosis: same Procedure & Clinicians Study performed: Colonoscopy Same procedure(s) as scheduled: Yes Indications: Fit test positive with history of diarrhea for screening colonoscopy Surgeon: Jose Luis Soriano Anesthesia Type: Other Procedure Notes Procedure in detail: After informed consent was obtained the patient was placed in left lateral decubitus position. The video colonoscope was introduced the rectum slowly advanced cecum. Preparation was good. On slow withdrawal mucosa was carefully examined. The scope was removed. The patient tolerated procedure well. Blood loss minimal Complications none Sedation mac Findings 1. Normal colonic mucosa throughout. Random biopsies taken to rule out microscopic colitis 2. Three polyps seen in the sigmoid colon. The largest of these was 1.6 cm on a long stalk. The smallest was 1 cm on a stalk. All 3 were removed with a hot snare. 3. Three rectal polyps were present. Two were diminished in size and the largest was 8 mm removed with hot snare. We will have to await his biopsy results. If the largest polyp is tubulovillous it is certainly possible it could be contributing to the diarrhea. Certainly with this number of polyps the with the cause of the fit test positivity. I would suggest follow-up in 1-2 years.
[2025-03-01 10:27] VITALS: BP 129/71; PULSE 57; RESP 14; TEMP 36.6; O2SAT 95
[2025-03-01 10:30] VITALS: BP 130/66; PULSE 56; RESP 15; O2SAT 95
[2025-03-01 10:35] VITALS: BP 120/72; PULSE 58; RESP 22; O2SAT 97
[2025-03-01 10:40] VITALS: BP 133/78; PULSE 52; RESP 26; O2SAT 97
== END 2025-03-01 10:59 | disposition home or self-care (01) ==
PROVIDERS: PCP Internal Medicine; Referring Provider Internal Medicine Gastroenterology; Visit Provider Internal Medicine Gastroenterology
PROC: 0DJD8ZZ Inspection of Lower Intestinal Tract, Via Natural or Artificial Opening Endoscopic (ICD-10-PCS; CPT 45378; principal; 2025-03-01 10:00)
DX: Z12.11 Encounter for screening for malignant neoplasm of colon (principal); R19.5 Other fecal abnormalities; Z85.89 Personal history of malignant neoplasm of other organs and systems; Z87.891 Personal history of nicotine dependence; K52.9 Noninfective gastroenteritis and colitis, unspecified; D12.8 Benign neoplasm of rectum; C18.9 Malignant neoplasm of colon, unspecified
CPT/HCPCS: 45385; 45380; J2704; J7120